=== PATIENT | female | born 1985 | race Two or more races ===

== ENCOUNTER 2017-09-24 07:57 | Emergency (ER) | payer MEDICAID ==
[~2017-09-24] VITALS: Ht 152.4 cm; Wt 60.8 kg
[2017-09-24] MEDS ORDERED: ARIPIPRAZOLE 10 MG TABLET (08:09)
[2017-09-24] MEDS ORDERED: ESCITALOPRAM 20 MG TABLET (08:09)
[2017-09-24] MEDS ORDERED: LORAZEPAM 0.5 MG TABLET (08:09)
--- NOTE | 2017-09-24 08:15 | NUR ---
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 SEEN BY MD FOR EVAL. VSS. SAFETY AND COMFORT MEASURES PROVIDED. WILL MONITOR.
[2017-09-24] MEDS ORDERED: diphenhydrAMINE HCL 50 MG/ML VIAL ONE (08:19)
[2017-09-24] MEDS ORDERED: KETOROLAC TROMETHAMINE INJ 30 MG/ML VIAL ONE (08:19)
[2017-09-24] MEDS ORDERED: METOCLOPRAMIDE HCL 10 MG/2 ML VIAL ONE (08:19)
[2017-09-24] MEDS ORDERED: METOCLOPRAMIDE HCL 10 MG/2 ML VIAL IV ONE (08:30)
[2017-09-24] MEDS ORDERED: diphenhydrAMINE HCL 50 MG/ML VIAL IV ONE (08:30)
[2017-09-24] MEDS ORDERED: KETOROLAC TROMETHAMINE INJ 30 MG/ML VIAL IV ONE (08:30)
[2017-09-24] MEDS ORDERED: IV NS 0.9% 1,000 ML BAG IV ONE (08:30)
--- NOTE | 2017-09-24 09:40 | NUR ---
IV removed. Catheter intact and site benign. Pressure and 4x4 applied to site. No bleeding noted.
[2017-09-24 09:46] VITALS: BP 129/79
--- NOTE | 2017-09-24 09:46 | NUR ---
Patient discharged to home in stable condition. Written and verbal after care instructions given. Patient verbalizes understanding of instruction.
== END 2017-09-24 09:46 | disposition home or self-care (01) ==
LOC: ER 08:02
DX: G44.209 Tension-type headache, unspecified, not intractable (principal); F31.9 Bipolar disorder, unspecified; F17.200 Nicotine dependence, unspecified, uncomplicated; F41.9 Anxiety disorder, unspecified; J45.909 Unspecified asthma, uncomplicated; Z88.1 Allergy status to other antibiotic agents
CPT/HCPCS: 96361; 96374; 96375; 99284; A4606; J1200; J1885; J2765; J7030; Z7610

== ENCOUNTER 2017-09-28 08:06 | Emergency (ER) | payer MEDICAID ==
[~2017-09-28] VITALS: Ht 152.4 cm; Wt 63.5 kg
[~2017-09-28 08:06] MED LIST: ARIPIPRAZOLE 10 MG TABLET; ESCITALOPRAM 20 MG TABLET; LORAZEPAM 0.5 MG TABLET
--- NOTE | 2017-09-28 08:10 | NUR ---
C/O THROBBING HEADACHE X7 DAYS WORSEN TODAY. SEEN HERE LAST TUESDAY, NAD NOTED, VSS, RESP EVEN AND UNLABORED, WAITING FOR MD LOREDO
[2017-09-28] MEDS ORDERED: DEXAMETHASONE SOD PHOSPHATE 10 MG/ML VIAL ONE (08:54)
[2017-09-28] MEDS ORDERED: diphenhydrAMINE HCL 50 MG/ML VIAL ONE (08:54)
[2017-09-28] MEDS ORDERED: PROCHLORPERAZINE EDISYLATE 10 MG/2 ML VIAL ONE (08:55)
[2017-09-28] MEDS ORDERED: KETOROLAC TROMETHAMINE INJ 30 MG/ML VIAL ONE (08:55)
[2017-09-28] MEDS ORDERED: PROCHLORPERAZINE EDISYLATE 10 MG/2 ML VIAL IV ONE (09:00)
[2017-09-28] MEDS ORDERED: IV NS 0.9% 500 ML BAG IV ONE (09:00)
[2017-09-28] MEDS ORDERED: diphenhydrAMINE HCL 50 MG/ML VIAL IV ONE (09:00)
[2017-09-28] MEDS ORDERED: KETOROLAC TROMETHAMINE INJ 30 MG/ML VIAL IV ONE (09:00)
[2017-09-28] MEDS ORDERED: DEXAMETHASONE SOD PHOSPHATE 10 MG/ML VIAL IV ONE (09:00)
[2017-09-28 09:58] VITALS: BP 109/68
--- NOTE | 2017-09-28 09:59 | NUR ---
Patient discharged to home in stable condition. Written and verbal after care instructions given. Patient verbalizes understanding of instruction.IV removed. Catheter intact and site benign. Pressure and 4x4 applied to site. No bleeding noted.
== END 2017-09-28 10:00 | disposition home or self-care (01) ==
LOC: ER 08:07
DX: R51 Headache (principal); F17.200 Nicotine dependence, unspecified, uncomplicated; F31.9 Bipolar disorder, unspecified; F41.9 Anxiety disorder, unspecified; J45.909 Unspecified asthma, uncomplicated; Z88.0 Allergy status to penicillin; Z88.1 Allergy status to other antibiotic agents
CPT/HCPCS: 96374; 96375; 99284; A4606; J0780; J1100; J1200; J1885; J7040; Z7610

== ENCOUNTER 2018-01-04 00:30 | Emergency (ER) | payer MEDICAID ==
[~2018-01-04] VITALS: Ht 152.4 cm; Wt 61.2 kg
[2018-01-04 00:43] VITALS: BP 113/58
[2018-01-04] MEDS ORDERED: IBUPROFEN 600 MG TABLET PO ONE ×2 (01:00→01:04)
--- NOTE | 2018-01-04 01:46 | NUR ---
PT REC'D A FINGER SPLINT PER DR. ARROYO.
== END 2018-01-04 01:30 | disposition home or self-care (01) ==
LOC: ER 00:32
DX: S67.193A Crushing injury of left middle finger, initial encounter (principal); S60.222A Contusion of left hand, initial encounter; F17.200 Nicotine dependence, unspecified, uncomplicated; J45.909 Unspecified asthma, uncomplicated; F32.9 Major depressive disorder, single episode, unspecified; F41.9 Anxiety disorder, unspecified; Z88.1 Allergy status to other antibiotic agents; W23.0XXA Caught, crushed, jammed, or pinched between moving objects, initial encounter; Y93.89 Activity, other specified; Y92.89 Other specified places as the place of occurrence of the external cause; Y99.8 Other external cause status
CPT/HCPCS: 29130; 73120; 99284; A4606; Z7610

== ENCOUNTER 2018-06-26 18:35 | Emergency (ER) | payer MEDICAID ==
[~2018-06-26] VITALS: Ht 152.4 cm; Wt 57.6 kg
[2018-06-26 18:35] VITALS: BP 133/84
[2018-06-26] MEDS ORDERED: diphenhydrAMINE HCL 50 MG/ML VIAL ONE (18:50)
[2018-06-26] MEDS ORDERED: methylPREDNISolone SOD SUCC 125 MG/2ML VIAL ONE (18:51)
[2018-06-26] MEDS ORDERED: FAMOTIDINE/PF INJ 20 MG/2 ML VIAL IV ONE ×2 (18:51→19:00)
[2018-06-26] MEDS ORDERED: methylPREDNISolone SOD SUCC 125 MG/2ML VIAL IV ONE (19:00)
[2018-06-26] MEDS ORDERED: diphenhydrAMINE HCL 50 MG/ML VIAL IV ONE (19:00)
== END 2018-06-26 21:30 | disposition home or self-care (01) ==
LOC: ER 18:35
DX: L50.9 Urticaria, unspecified (principal); J45.909 Unspecified asthma, uncomplicated; F31.9 Bipolar disorder, unspecified; F17.200 Nicotine dependence, unspecified, uncomplicated; Z88.1 Allergy status to other antibiotic agents
CPT/HCPCS: 96374; 96375; 99283; A4606; J1200; J2930; J3490; Z7610

== ENCOUNTER 2018-09-24 22:30 | Emergency (ER) | payer MEDICAID ==
[~2018-09-24] VITALS: Ht 152.4 cm; Wt 62.1 kg
--- NOTE | 2018-09-24 22:50 | NUR ---
PT BIBFAMILY C/O ABD PAIN WITH NAUSEA X 2 DAYS. PATIENT STATES SHES 5-6 WEEKS . . DENIES BLEEDING. PT AOX4. NAD NOTED. RESP EVEN AND UNLABORED. FAMILY AT BEDSIDE. PT ON MONITOR IN BED 12. WILL CONTINUE TO MONITOR.
--- NOTE | 2018-09-24 23:00 | NUR ---
URINE COLLECTED AND SENT TO LAB
--- NOTE | 2018-09-24 23:23 | NUR ---
BLOOD DRAWN AND GIVEN TO LAB
[2018-09-24 23:30] LABS: BASOPHILS % (AUTO) 0.5 % (0.0-2.0); EOSINOPHILS % (AUTO) 2.4 % (0.0-6.0); HEMATOCRIT 38 % (33-45); HEMOGLOBIN 12.7 g/dL (11.5-14.8); LYMPHOCYTES # (AUTO) 2.8 /CMM (0.8-4.8); LYMPHOCYTES % (AUTO) 36.7 % (20.0-44.0); MEAN CORPUSCULAR HGB CONC 34 g/dl (31.0-36.0); MEAN CORPUSCULAR VOLUME 94 fL (82-100); MONOCYTES # (AUTO) 0.7 /CMM (0.1-1.30); MONOCYTES % (AUTO) 9.3 % (2.0-12.0); NEUTROPHILS # (AUTO) 3.9 /CMM (1.8-8.9); NEUTROPHILS % (AUTO) 51.1 % (43.0-81.0); PLATELET COUNT (AUTO) 236 /CMM (150-450); WHITE BLOOD COUNT (AUTO) 7.6 K/uL (4.3-11.0)
[2018-09-24] MEDS ORDERED: IV NS 0.9% 1,000 ML BAG IV ONE (23:30)
[2018-09-24 23:34] LABS: APPEARANCE,URINE Clear (CLEAR); BILIRUBIN,URINE Negative (NEGATIVE); BLOOD, URINE Trace-intact Ery/uL (NEGATIVE); COLOR,URINE Yellow (YELLOW); KETONES,URINE Negative (NEGATIVE); LEUKOCYTE ESTERASE ,URINE Negative (NEGATIVE); NITRITE, URINE Negative (NEGATIVE); PH,URINE 5.5 (5.0-8.0); PROTEIN,URINE Negative (NEGATIVE); UGLUCOSE Negative (NEGATIVE); UROBILINOGEN,URINE 0.2 EU/dL (0.2)
[2018-09-24 23:44] LABS: CALCIUM, SERUM 8.8 mg/dL (8.5-10.1); CREATININE 0.7 mg/dL (0.6-1.3); POTASSIUM 3.7 mmol/L (3.5-5.1)
[2018-09-24 23:52] LABS: BACTERIA,URINE None seen /HPF (None Seen); RBC,URINE 0-2 /HPF (0-2); SQUAMOUS EPITHELIAL CELL,UR Few /HPF (None Seen); WBC,URINE 0-2 /HPF (0-3)
[2018-09-25 00:12] LABS: ALBUMIN 3.8 g/dL (3.4-5.0); BILIRUBIN,TOTAL 0.2 mg/dL (0.2-1.0); TOTAL PROTEIN, SERUM 7.7 g/dL (6.4-8.2)
[2018-09-25 00:32] VITALS: BP 123/72
--- NOTE | 2018-09-25 01:42 | NUR ---
CALLED [facility] FOR RADIOLOGY REPORTS.
--- NOTE | 2018-09-25 01:47 | NUR ---
ASSUMED CARE OF PATIENT AT DISCHARGE. Patient discharged to home in stable condition. Written and verbal after care instructions given. Patient verbalizes understanding of instruction.IV removed. Catheter intact and site benign. Pressure and 4x4 applied to site. No bleeding noted. PT AMBULATED WITH STEADY GAIT NOTED
== END 2018-09-25 01:56 | disposition home or self-care (01) ==
LOC: ER 22:30
DX: O20.0 Threatened abortion (principal); J45.909 Unspecified asthma, uncomplicated; F41.9 Anxiety disorder, unspecified; F31.9 Bipolar disorder, unspecified; F17.200 Nicotine dependence, unspecified, uncomplicated; Z90.5 Acquired absence of kidney; Z98.890 Other specified postprocedural states; Z88.1 Allergy status to other antibiotic agents
CPT/HCPCS: 36415; 76856; 80048; 80076; 81001; 84702; 85025; 99284; A4606; J7030; 81000-TC

== ENCOUNTER 2019-08-30 09:52 | Emergency (ER) | payer MEDICAID ==
[~2019-08-30] VITALS: Ht 152.4 cm; Wt 55.8 kg
--- NOTE | 2019-08-30 10:01 | NUR ---
PT BIB SELF C/O LOWER ABDOMINAL PAIN AND RECTAL PAIN STARTED YESTERDAY, PT IS AAOX4, NOT IN RESPIRATORY DISTRESS, HOOKED TO MONITOR, KEPT RESTED AND COMFORTABLE, WILL CONTINUE TO MONITOR.
--- NOTE | 2019-08-30 10:03 | NUR ---
URINE SPECIMEN COLLECTED AND SENT TO LAB.
--- NOTE | 2019-08-30 10:15 | NUR ---
AT BEDSIDE FOR EVAL.
[2019-08-30] MEDS ORDERED: IV NS 0.9% 1,000 ML BAG IV ONE (10:30)
[2019-08-30] MEDS ORDERED: MORPHINE SULFATE INJ 2 MG/ML DISP.SYRIN IV ONE (10:30)
[2019-08-30] MEDS ORDERED: ONDANSETRON HCL/PF 4 MG/2 ML VIAL IVP ONE (10:30)
[2019-08-30] MEDS ORDERED: ONDANSETRON HCL/PF 4 MG/2 ML VIAL ONE (10:35)
[2019-08-30] MEDS ORDERED: MORPHINE SULFATE INJ 4 MG/ML DISP.SYRIN ONE (10:35)
--- NOTE | 2019-08-30 10:39 | NUR ---
TECH AT BEDSIDE FOR US.
[2019-08-30 10:47] LABS: APPEARANCE,URINE Clear (CLEAR); BILIRUBIN,URINE Negative (NEGATIVE); BLOOD, URINE Negative Ery/uL (NEGATIVE); COLOR,URINE Yellow (YELLOW); KETONES,URINE Negative (NEGATIVE); LEUKOCYTE ESTERASE ,URINE Negative (NEGATIVE); NITRITE, URINE Negative (NEGATIVE); PROTEIN,URINE Negative (NEGATIVE); UGLUCOSE Negative (NEGATIVE); UROBILINOGEN,URINE 0.2 EU/dL (0.2)
--- NOTE | 2019-08-30 10:54 | NUR ---
IV LINE ESTABLISHED, BLOOD DRAWN AND SENT TO LAB.
[2019-08-30 10:56] LABS: BASOPHILS % (AUTO) 0.5 % (0.0-2.0); EOSINOPHILS % (AUTO) 2.3 % (0.0-6.0); HEMATOCRIT 38 % (33-45); HEMOGLOBIN 12.7 g/dL (11.5-14.8); LYMPHOCYTES # (AUTO) 1.7 /CMM (0.8-4.8); LYMPHOCYTES % (AUTO) 29.7 % (20.0-44.0); MEAN CORPUSCULAR HGB CONC 34 g/dl (31.0-36.0); MEAN CORPUSCULAR VOLUME 92 fL (82-100); MONOCYTES # (AUTO) 0.5 /CMM (0.1-1.30); MONOCYTES % (AUTO) 8.7 % (2.0-12.0); NEUTROPHILS # (AUTO) 3.3 /CMM (1.8-8.9); NEUTROPHILS % (AUTO) 58.8 % (43.0-81.0); PLATELET COUNT (AUTO) 216 /CMM (150-450); RED BLOOD CELL COUNT(AUTO) 4.11 MIL/uL (4.0-5.2); WHITE BLOOD COUNT (AUTO) 5.6 K/uL (4.3-11.0)
[2019-08-30 11:03] LABS: CALCIUM, SERUM 8.6 mg/dL (8.5-10.1); CREATININE 0.7 mg/dL (0.6-1.3); POTASSIUM 3.9 mmol/L (3.5-5.1)
[2019-08-30 11:10] LABS: ALBUMIN 3.8 g/dL (3.4-5.0); BILIRUBIN,DIRECT 0.1 mg/dL (0.0-0.2); BILIRUBIN,TOTAL 0.4 mg/dL (0.2-1.0); TOTAL PROTEIN, SERUM 7.7 g/dL (6.4-8.2)
--- NOTE | 2019-08-30 11:17 | NUR ---
PT IS WHEELED TO CT SCAN VIA [facility].
[2019-08-30] MEDS ORDERED: IV NS 0.9% 250 ML IV ONE (11:25)
[2019-08-30] MEDS ORDERED: CT SWABBABLE VALVE TRANS SET 1 EA INFUS.SET MC ONE (11:25)
[2019-08-30] MEDS ORDERED: IOHEXOL-300 100 ML VIAL IV ONE (11:25)
[2019-08-30 12:54] VITALS: BP 119/72
--- NOTE | 2019-08-30 12:54 | NUR ---
IV removed. Catheter intact and site benign. Pressure and 4x4 applied to site. No bleeding noted. Patient discharged to home in stable condition. Written and verbal after care instructions given. Patient verbalizes understanding of instruction.
== END 2019-08-30 12:56 | disposition home or self-care (01) ==
LOC: ER 09:54
DX: R10.30 Lower abdominal pain, unspecified (principal); F17.200 Nicotine dependence, unspecified, uncomplicated; J45.909 Unspecified asthma, uncomplicated; Z98.890 Other specified postprocedural states; Z88.1 Allergy status to other antibiotic agents
CPT/HCPCS: 36415; 74177; 76856; 80048; 80076; 81001; 83690; 84702; 85025; 96374; 96375; 99285; J2270; J2405; J7030; J7050; Q9967; 81000-TC

== ENCOUNTER 2019-10-03 04:43 | Emergency (ER) | payer MEDICAID ==
[~2019-10-03] VITALS: Ht 152.4 cm; Wt 59.0 kg
--- NOTE | 2019-10-03 04:53 | NUR ---
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 PATIENT STATES THAT SHE HAS A HISTORY OF INTERNAL BLEEDING AND THE PAIN FEELS SIMILAR TO THE PAIN SHE CURRENTLY HAS. PATIENT STATES THAT SHE IS CURRENTLY . AAOX4. NO SOB. BREATHING EVENLY AND UNLABORED ON ROOM AIR. CONNECTED TO MONITOR.
--- NOTE | 2019-10-03 04:56 | NUR ---
URINE COLLECTED AND SENT TO LAB
[2019-10-03] MEDS ORDERED: ONDANSETRON HCL/PF 4 MG/2 ML VIAL IVP ONE (05:00)
[2019-10-03] MEDS ORDERED: KETOROLAC TROMETHAMINE INJ 30 MG/ML VIAL IV ONE (05:00)
[2019-10-03] MEDS ORDERED: IV NS 0.9% 1,000 ML BAG IV ONE (05:00)
[2019-10-03] MEDS ORDERED: MORPHINE SULFATE INJ 2 MG/ML DISP.SYRIN IV ONE (05:00)
[2019-10-03] MEDS ORDERED: MORPHINE SULFATE INJ 4 MG/ML DISP.SYRIN ONE (05:06)
[2019-10-03] MEDS ORDERED: KETOROLAC TROMETHAMINE INJ 30 MG/ML VIAL ONE (05:06)
[2019-10-03] MEDS ORDERED: ONDANSETRON HCL/PF 4 MG/2 ML VIAL ONE (05:06)
[2019-10-03 05:08] LABS: APPEARANCE,URINE Clear (CLEAR); BILIRUBIN,URINE Negative (NEGATIVE); BLOOD, URINE Large Ery/uL (NEGATIVE); COLOR,URINE Yellow (YELLOW); KETONES,URINE Negative (NEGATIVE); LEUKOCYTE ESTERASE ,URINE Negative (NEGATIVE); NITRITE, URINE Negative (NEGATIVE); PH,URINE 5.5 (5.0-8.0); PROTEIN,URINE Trace mg/dl (NEGATIVE); UGLUCOSE Negative (NEGATIVE); UROBILINOGEN,URINE 0.2 EU/dL (0.2)
[2019-10-03 05:18] LABS: BASOPHILS % (AUTO) 0.6 % (0.0-2.0); EOSINOPHILS % (AUTO) 3.6 % (0.0-6.0); HEMATOCRIT 38 % (33-45); LYMPHOCYTES % (AUTO) 45.3 % (20.0-44.0); MEAN CORPUSCULAR HGB CONC 34 g/dl (31.0-36.0); MEAN CORPUSCULAR VOLUME 93 fL (82-100); MONOCYTES # (AUTO) 0.6 /CMM (0.1-1.30); MONOCYTES % (AUTO) 9.3 % (2.0-12.0); NEUTROPHILS # (AUTO) 2.7 /CMM (1.8-8.9); NEUTROPHILS % (AUTO) 41.2 % (43.0-81.0); PLATELET COUNT (AUTO) 220 /CMM (150-450); RED BLOOD CELL COUNT(AUTO) 4.13 MIL/uL (4.0-5.2); WHITE BLOOD COUNT (AUTO) 6.6 K/uL (4.3-11.0)
--- NOTE | 2019-10-03 05:18 | NUR ---
BLOOD COLLECTED AND SENT TO LAB
[2019-10-03 05:25] LABS: CALCIUM, SERUM 8.4 mg/dL (8.5-10.1); CREATININE 0.9 mg/dL (0.6-1.3); POTASSIUM 3.6 mmol/L (3.5-5.1)
[2019-10-03 05:30] LABS: BACTERIA,URINE Few /HPF (None Seen); RBC,URINE TOO NUMEROUS TO COUN /HPF (0-2); SQUAMOUS EPITHELIAL CELL,UR Few /HPF (None Seen); WBC,URINE 0-2 /HPF (0-3)
[2019-10-03 05:31] LABS: ALBUMIN 3.6 g/dL (3.4-5.0); BILIRUBIN,TOTAL 0.1 mg/dL (0.2-1.0); TOTAL PROTEIN, SERUM 7.6 g/dL (6.4-8.2)
--- NOTE | 2019-10-03 05:52 | NUR ---
PATIENT SENT TO CT VIA [facility]
[2019-10-03 06:59] VITALS: BP 125/69
== END 2019-10-03 06:59 | disposition home or self-care (01) ==
LOC: ER 04:44
DX: R10.9 Unspecified abdominal pain (principal); J45.909 Unspecified asthma, uncomplicated; Z88.1 Allergy status to other antibiotic agents
CPT/HCPCS: 36415; 74176; 80048; 80076; 81001; 83690; 84703; 85025; 96374; 96375; 99284; J1885; J2270; J2405; J7030; 81000-TC

== ENCOUNTER 2020-03-30 14:08 | Emergency (ER) | payer MEDICAID ==
[~2020-03-30] VITALS: Ht 152.4 cm; Wt 56.7 kg
[2020-03-30 14:14] VITALS: BP 132/80
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
[2020-03-30] MEDS ORDERED: SILVER SULFADIAZINE CREAM 25 GM TUBE ONE (14:37)
--- NOTE | 2020-03-30 14:54 | NUR ---
Patient discharged to home in stable condition. Written and verbal after care instructions given. Patient verbalizes understanding of instruction. Pt ambulatory with a steady gait
[2020-03-30] MEDS ORDERED: SILVER SULFADIAZINE CREAM 25 GM TUBE TP ONE (15:00)
== END 2020-03-30 14:55 | disposition home or self-care (01) ==
LOC: ER 14:10
DX: T24.212A Burn of second degree of left thigh, initial encounter (principal); J45.909 Unspecified asthma, uncomplicated; F32.9 Major depressive disorder, single episode, unspecified; F41.9 Anxiety disorder, unspecified; F17.200 Nicotine dependence, unspecified, uncomplicated; Z98.890 Other specified postprocedural states; Z88.1 Allergy status to other antibiotic agents; Z79.899 Other long term (current) drug therapy; X11.8XXA Contact with other hot tap-water, initial encounter; Y93.89 Activity, other specified; Y92.89 Other specified places as the place of occurrence of the external cause; Y99.8 Other external cause status

== ENCOUNTER 2020-06-17 20:16 | Emergency (ER) | payer MEDICAID ==
[~2020-06-17] VITALS: Ht 152.4 cm; Wt 54.4 kg
[2020-06-17 20:35] VITALS: BP 161/101
[2020-06-17] MEDS ORDERED: ACETAMINOPHEN ES 500 MG TABLET ONE (21:05)
[2020-06-17] MEDS ORDERED: ACETAMINOPHEN 325 MG TABLET PO ONE (21:30)
== END 2020-06-17 21:12 | disposition home or self-care (01) ==
LOC: ER 20:16
DX: R50.9 Fever, unspecified (principal); R53.81 Other malaise; R51.9 Headache, unspecified; Z20.828 Contact with and (suspected) exposure to other viral communicable diseases; F41.9 Anxiety disorder, unspecified; J45.909 Unspecified asthma, uncomplicated; F31.9 Bipolar disorder, unspecified; Z88.1 Allergy status to other antibiotic agents; F17.210 Nicotine dependence, cigarettes, uncomplicated

== ENCOUNTER 2020-11-03 16:23 | Emergency (ER) | payer MEDICAID ==
[~2020-11-03] VITALS: Ht 152.4 cm; Wt 56.7 kg
--- NOTE | 2020-11-03 16:40 | NUR ---
THE PATIENT PRESENTED TO ER FOR C/O LEFT LOWER ABDOMINAL PAIN STARTING TODAY @ 3AM. -N/V. RATES PAIN 01/17. DENIES SOB. RESPIRATION REGULAR AND UNLABORED. WARM BLANKET PROVIDED. WILL CONTINUE TO MONITOR.
[2020-11-03] MEDS ORDERED: ONDANSETRON HCL/PF 4 MG/2 ML VIAL ONE (16:55)
[2020-11-03] MEDS ORDERED: KETOROLAC TROMETHAMINE INJ 30 MG/ML VIAL IV ONE (17:00)
[2020-11-03] MEDS ORDERED: IV NS 0.9% 1,000 ML BAG IV ONE (17:00)
[2020-11-03] MEDS ORDERED: ONDANSETRON HCL/PF 4 MG/2 ML VIAL IVP ONE (17:00)
[2020-11-03 17:11] LABS: BILIRUBIN,URINE Negative (NEGATIVE); COLOR,URINE YELLOW (YELLOW); LEUKOCYTE ESTERASE ,URINE Negative (NEGATIVE); NITRITE, URINE Negative (NEGATIVE); PROTEIN,URINE Negative (NEGATIVE); UGLUCOSE Negative (NEGATIVE); UROBILINOGEN,URINE 0.2 EU/dL (0.2)
[2020-11-03 17:16] LABS: BASOPHILS % (AUTO) 0.6 % (0.0-2.0); EOSINOPHILS % (AUTO) 1.8 % (0.0-6.0); HEMATOCRIT 38 % (33-45); HEMOGLOBIN 12.6 g/dL (11.5-14.8); LYMPHOCYTES # (AUTO) 2.1 /CMM (0.8-4.8); LYMPHOCYTES % (AUTO) 38.3 % (20.0-44.0); MEAN CORPUSCULAR HGB CONC 33 g/dl (31.0-36.0); MEAN CORPUSCULAR VOLUME 93 fL (82-100); MONOCYTES # (AUTO) 0.4 /CMM (0.1-1.30); MONOCYTES % (AUTO) 7.5 % (2.0-12.0); NEUTROPHILS # (AUTO) 2.8 /CMM (1.8-8.9); NEUTROPHILS % (AUTO) 51.8 % (43.0-81.0); PLATELET COUNT (AUTO) 189 /CMM (150-450); RED BLOOD CELL COUNT(AUTO) 4.06 MIL/uL (4.0-5.2); WHITE BLOOD COUNT (AUTO) 5.5 K/uL (4.3-11.0)
[2020-11-03] MEDS ORDERED: KETOROLAC TROMETHAMINE 15 MG/ML VIAL ONE ×2 (17:23→17:36)
[2020-11-03 17:30] LABS: CALCIUM, SERUM 8.2 mg/dL (8.5-10.1); CREATININE 0.6 mg/dL (0.6-1.3); POTASSIUM 3.8 mmol/L (3.5-5.1)
[2020-11-03 17:35] LABS: ALBUMIN 3.6 g/dL (3.4-5.0); BILIRUBIN,TOTAL 0.2 mg/dL (0.2-1.0); TOTAL PROTEIN, SERUM 7.3 g/dL (6.4-8.2)
[2020-11-03] MEDS ORDERED: IBUP-1955 PO (19:03)
[2020-11-03 19:25] VITALS: BP 126/82
--- NOTE | 2020-11-03 19:25 | NUR ---
PATIENT A/OX4. DENIES PAIN AT THIS TIME. IV removed. Catheter intact and site benign. Pressure and 4x4 applied to site. No bleeding noted.Patient discharged to home in stable condition. Written and verbal after care instructions given. Patient verbalizes understanding of instruction.
== END 2020-11-03 19:25 | disposition home or self-care (01) ==
LOC: ER 16:27
DX: N83.202 Unspecified ovarian cyst, left side (principal); J45.909 Unspecified asthma, uncomplicated; F31.9 Bipolar disorder, unspecified; F41.9 Anxiety disorder, unspecified; F17.200 Nicotine dependence, unspecified, uncomplicated; Z98.890 Other specified postprocedural states; Z88.1 Allergy status to other antibiotic agents; Z79.899 Other long term (current) drug therapy
CPT/HCPCS: 36415; 76856; 80048; 80076; 81003; 83690; 84703; 85025; 96361; 96374; 96375; 99284; J1885 ×2; J2405; J7030

== ENCOUNTER 2020-11-18 22:57 | Emergency (ER) | payer MEDICAID ==
[~2020-11-18] VITALS: Ht 152.4 cm; Wt 56.7 kg
[~2020-11-18 22:57] MED LIST changes: +IBUP-1955 PO
--- NOTE | 2020-11-18 23:45 | NUR ---
BIBSELF C/O LEFT SIDED CHEST PAIN NONRADIATING "PRESSURE LIKE" 1 HR CONSTRUCTION TECH TO ER BED 6
[2020-11-19 00:06] LABS: BASOPHILS % (AUTO) 0.5 % (0.0-2.0); EOSINOPHILS % (AUTO) 3.2 % (0.0-6.0); HEMATOCRIT 38 % (33-45); HEMOGLOBIN 12.5 g/dL (11.5-14.8); LYMPHOCYTES # (AUTO) 3.3 /CMM (0.8-4.8); LYMPHOCYTES % (AUTO) 48.2 % (20.0-44.0); MEAN CORPUSCULAR HGB CONC 33 g/dl (31.0-36.0); MEAN CORPUSCULAR VOLUME 93 fL (82-100); MONOCYTES # (AUTO) 0.5 /CMM (0.1-1.30); NEUTROPHILS # (AUTO) 2.8 /CMM (1.8-8.9); NEUTROPHILS % (AUTO) 41.1 % (43.0-81.0); PLATELET COUNT (AUTO) 227 /CMM (150-450); RED BLOOD CELL COUNT(AUTO) 4.05 MIL/uL (4.0-5.2); WHITE BLOOD COUNT (AUTO) 6.8 K/uL (4.3-11.0)
[2020-11-19 00:15] LABS: CALCIUM, SERUM 8.8 mg/dL (8.5-10.1); CARBON DIOXIDE 27 mmol/L (21-32); CHLORIDE 105 mmol/L (98-107); CREATININE 0.7 mg/dL (0.6-1.3); GLUCOSE 86 mg/dL (74-106); POTASSIUM 3.6 mmol/L (3.5-5.1); SODIUM SERUM 141 mmol/L (136-145); UREA NITROGEN, BLOOD 22 mg/dL (7-18)
--- NOTE | 2020-11-19 00:17 | NUR ---
TECH AT BEDSIDE FOR EVAL
[2020-11-19] MEDS ORDERED: ONDANSETRON 4 MG TAB.RAPDIS SL ONE (00:30)
[2020-11-19] MEDS ORDERED: ONDANSETRON 4 MG TAB.RAPDIS ONE (00:32)
[2020-11-19] MEDS ORDERED: ONDA4TAB11 PO (01:05)
[2020-11-19 01:20] VITALS: BP 113/67
== END 2020-11-19 01:20 | disposition home or self-care (01) ==
LOC: ER 22:57
DX: R07.89 Other chest pain (principal); J45.909 Unspecified asthma, uncomplicated; F31.9 Bipolar disorder, unspecified; F41.9 Anxiety disorder, unspecified; F17.200 Nicotine dependence, unspecified, uncomplicated; Z98.890 Other specified postprocedural states; Z88.1 Allergy status to other antibiotic agents; Z79.899 Other long term (current) drug therapy
CPT/HCPCS: 36415; 71045; 80048; 84484; 84703; 85025; 99284; Q0162

== ENCOUNTER 2021-07-29 01:49 | Emergency (ER) | payer MEDICAID ==
[~2021-07-29] VITALS: Ht 152.4 cm; Wt 59.0 kg
[~2021-07-29 01:49] MED LIST changes: +ONDA4TAB11 PO
--- NOTE | 2021-07-29 02:02 | NUR ---
PRSENTED TO THE ER FOR C/O ALLERGIC REACTION SUCH ITCHY HANDS, SWOLLEN LIPS AND ITCHY THROAT. PT WAS PLACED IN BED 9 ER ON MONITOR.
[2021-07-29] MEDS ORDERED: diphenhydrAMINE HCL 25 MG CAPSULE ONE (02:04)
[2021-07-29] MEDS ORDERED: diphenhydrAMINE HCL 25 MG CAPSULE PO ONE (02:30)
[2021-07-29] MEDS ORDERED: ONDANSETRON 4 MG TAB.RAPDIS ONE (02:56)
[2021-07-29] MEDS ORDERED: ONDANSETRON 4 MG TAB.RAPDIS SL ONE (03:00)
[2021-07-29 03:03] VITALS: BP 112/68
--- NOTE | 2021-07-29 03:03 | NUR ---
Patient discharged to home in stable condition. Written and verbal after care instructions given. Patient verbalizes understanding of instruction.
== END 2021-07-29 03:03 | disposition home or self-care (01) ==
LOC: ER 01:51
DX: L29.9 Pruritus, unspecified (principal); J45.909 Unspecified asthma, uncomplicated; Z88.1 Allergy status to other antibiotic agents; Z98.890 Other specified postprocedural states
CPT/HCPCS: 99282; Q0162; Q0163

== ENCOUNTER 2021-08-20 09:39 | Emergency (ER) | payer MEDICAID ==
[~2021-08-20] VITALS: Ht 152.4 cm; Wt 59.0 kg
[2021-08-20 09:52] VITALS: BP 113/65
--- NOTE | 2021-08-20 09:59 | NUR ---
dr linares at bedside for eval.
--- NOTE | 2021-08-20 10:25 | NUR ---
radiology at bedside for chest xray.
[2021-08-20] MEDS ORDERED: AZIT250T PO (11:21)
[2021-08-20] MEDS ORDERED: ALBU8.5H8 INH (11:21)
== END 2021-08-20 11:48 | disposition home or self-care (01) ==
LOC: ER 09:58
DX: J20.9 Acute bronchitis, unspecified (principal); Z20.822 Contact with and (suspected) exposure to COVID-19; Z88.1 Allergy status to other antibiotic agents; Z88.0 Allergy status to penicillin; F31.9 Bipolar disorder, unspecified; F41.9 Anxiety disorder, unspecified; J45.909 Unspecified asthma, uncomplicated; F17.200 Nicotine dependence, unspecified, uncomplicated
CPT/HCPCS: 71045; 87426; 99284; C9803

== ENCOUNTER 2023-10-25 22:23 | Emergency (ER) | payer MEDICAID ==
[~2023-10-25] VITALS: Ht 152.4 cm; Wt 59.0 kg
[~2023-10-25 22:23] MED LIST changes: +ALBU8.5H8 INH; +AZIT250T PO
[2023-10-25 23:25] VITALS: BP 122/75; TEMP 98.5; O2SAT 98
[2023-10-25] MEDS ORDERED: AZIT250T PO (23:53)
[2023-10-25] MEDS ORDERED: ERYT3.5O9 EACHEYE (23:53)
== END 2023-10-25 23:50 | disposition home or self-care (01) ==
LOC: ER 22:27
DX: J32.9 Chronic sinusitis, unspecified (principal); H10.9 Unspecified conjunctivitis; J45.909 Unspecified asthma, uncomplicated; F31.9 Bipolar disorder, unspecified; F41.9 Anxiety disorder, unspecified; F17.200 Nicotine dependence, unspecified, uncomplicated; Z88.0 Allergy status to penicillin; Z88.8 Allergy status to other drugs, medicaments and biological substances; Z79.899 Other long term (current) drug therapy